=== PATIENT | male | born 1965 | race Caucasian/White ===

== ENCOUNTER 2020-07-27 17:29 | Emergency (ER) | payer SELFPAY ==
[2020-07-27 17:48] VITALS: BP 148/94; PULSE 101; RESP 18; TEMP 36.7; O2SAT 95; BMI 25.1
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
[2020-07-27] MEDS: HYDROcodone-acetaminophen 7.5-325 mg Tablet 1 TAB PO (19:55)
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
--- NOTE | 2020-07-27 22:13 | PC.NURSE ---
mehul wrapped right 4th and 5th fingers
[2020-07-27 23:43] VITALS: BP 161/100; PULSE 82; RESP 16; TEMP 36.7; O2SAT 93; O2SAT 94
--- NOTE | 2020-07-28 09:27 | DCPLANNER ---
manager engine had message to schedule a follow up appointment for patient with ortho. manager engine called the ortho clinic, spoke with Sylwia, gave clinic patients information. manager engine was told that patients information would be printed and reviewed. Clinic will call patient with appointment information.
--- NOTE | 2020-08-05 08:37 | DCPLANNER ---
Sylwia from the ortho clinic called rehabilitation caseworker and informed rehabilitation caseworker that clinic was unable to reach patient at this time. fleet service manager called patient, unable to reach patient at this time.
== END 2020-07-28 00:01 | disposition home or self-care (01) ==
PROVIDERS: Emergency Provider Physician Assistant
DX: S22.050A Wedge compression fracture of T5-T6 vertebra, initial encounter for closed fracture (principal); S62.646A Nondisplaced fracture of proximal phalanx of right little finger, initial encounter for closed fracture; V89.2XXA Person injured in unspecified motor-vehicle accident, traffic, initial encounter
CPT/HCPCS: 70450; 72125; 72128; 72131; 73130; 99283